=== PATIENT | female | born 1995 | race Caucasian/White ===

== ENCOUNTER 2016-05-20 02:49 | Inpatient (IN) | payer OTHER ==
[~2016-05-20] VITALS: Ht 170.2 cm; Wt 95.5 kg
[2016-05-20] VITALS (11 sets, daily range): BP systolic 112–139; BP diastolic 60–85
[~2016-05-20 02:49] MED LIST: IBUPROFEN800 MG PO; METHIMAZOLE10 MG PO; NOHOMEMEDS; PRENATAL TABLE1 EAC3 PO; SPRINTEC1 EACH PO; ZOFRAN ODT4 MG PO; ZOFRAN4 MG PO
[2016-05-20 04:44] LABS: EOSINOPHIL (%) 0.1 % (0-5); HEMATOCRIT 40.5 % (36.0-46.0); IMMATURE GRANULOCYTE (%) 0.3 % (0.0-0.7); INSTRUMENT ABS NEUTROPHIL CT 10.1 K/uL; LYMPHOCYTE COUNT 1.3 K/uL (1.0-2.8); MCH 29.2 PG (29.0-34.0); MCHC 33.8 G/DL (30.0-36.0); MCV 86.4 FL (83-99); MEAN PLAT.VOLUME 9.8 uM^3 (9.5-12.4); MONOCYTE (%) 3.9 % (3-12); MONOCYTE COUNT 0.5 K/uL (0-0.8); NEUTROPHIL (%) 84.8 % (45-76); NEUTROPHIL COUNT 10.1 K/uL (1.8-6.4); PLATELET COUNT 232 K/uL (156-360); RBC DIS.WIDTH-CV 14.1 % (11.8-14.6); RBC DIS.WIDTH-SD 43.8 % (39-53); RED BLOOD COUNT 4.69 M/uL (3.80-5.20); WHITE BLOOD COUNT 11.9 K/uL (4.1-10.2)
[2016-05-20] MEDS ORDERED: ZANTAC150 MG PO (04:47)
[2016-05-20] MEDS ORDERED: PROPYLTHIOURACI50 MG PO (04:48)
[2016-05-21 07:30] VITALS: BP 117/65
[2016-05-21] MEDS ORDERED: IBUPROFEN800 MG PO (11:47)
[2016-05-21] MEDS ORDERED: Tylenol Extra Streng PO (11:47)
[2016-05-21] MEDS ORDERED: PROPYLTHIOURACI50 MG PO (11:48)
[2016-05-21 15:20] VITALS: BP 123/82
== END 2016-05-21 16:54 | disposition home or self-care (01) | DRG 775 ==
LOC: LDRP-OP 02:49 → 2WEST 02:50
PROVIDERS: Advanced Practice Midwife
DX: O32.6XX0 Maternal care for compound presentation, not applicable or unspecified (principal); O69.81X0 Labor and delivery complicated by cord around neck, without compression, not applicable or unspecified; O99.344 Other mental disorders complicating childbirth; F33.9 Major depressive disorder, recurrent, unspecified; E05.00 Thyrotoxicosis with diffuse goiter without thyrotoxic crisis or storm; Z3A.40 40 weeks gestation of pregnancy; Z37.0 Single live birth; J45.909 Unspecified asthma, uncomplicated; K21.9 Gastro-esophageal reflux disease without esophagitis; O99.283 Endocrine, nutritional and metabolic diseases complicating pregnancy, third trimester; O99.513 Diseases of the respiratory system complicating pregnancy, third trimester; O99.613 Diseases of the digestive system complicating pregnancy, third trimester
CPT/HCPCS: 85025; J2590

== ENCOUNTER 2017-05-08 09:35 | Observation (INO) | payer OTHER ==
[~2017-05-08] VITALS: Ht 170.2 cm; Wt 68.4 kg
[~2017-05-08 09:35] MED LIST changes: +PROPYLTHIOURACI50 MG PO; +Tylenol Extra Streng PO; +ZANTAC150 MG PO
[2017-05-08 10:11] LABS: BASOPHIL (%) 0 % (0-1); EOSINOPHIL (%) 0 % (0-5); HEMATOCRIT 42.7 % (36.0-46.0); IMMATURE GRANULOCYTE (%) 0.3 % (0.0-0.7); LYMPHOCYTE (%) 6.4 % (15-42); LYMPHOCYTE COUNT 0.5 K/uL (1.0-2.8); MCH 27.8 PG (29.0-34.0); MCHC 35.1 G/DL (30.0-36.0); MCV 79.1 FL (83-99); MONOCYTE (%) 6.1 % (3-12); MONOCYTE COUNT 0.5 K/uL (0-0.8); NEUTROPHIL (%) 87.2 % (45-76); NEUTROPHIL COUNT 6.4 K/uL (1.8-6.4); PLATELET COUNT 183 K/uL (156-360); RBC DIS.WIDTH-CV 12.6 % (11.8-14.6); RBC DIS.WIDTH-SD 35.6 % (39-53); WHITE BLOOD COUNT 7.4 K/uL (4.1-10.2)
[2017-05-08 10:21] LABS: CHLORIDE 111 mEq/L (99-109); POTASSIUM 3.6 mEq/L (3.7-5.4); SODIUM 139 mEq/L (136-147)
[2017-05-08 10:22] LABS: APPEARANCE CLOUDY ((CLEAR)); BILIRUBIN NEGATIVE; BLOOD SMALL; COLOR YELLOW ((YELLOW)); GLUCOSE (STRIP) 50; KETONES NEGATIVE; LEUKOCYTES LARGE; NITRITE NEGATIVE; PROTEIN (STRIP) NEGATIVE; SPECIFIC GRAVITY 1.006 (1.000-1.030); UROBILINOGEN 0.2 MG/DL (0.2-1.0)
[2017-05-08 10:23] LABS: GLUCOSE 106 mg/dL (70-99); TOTAL PROTEIN 7.1 g/dL (6.4-8.3)
[2017-05-08 10:25] LABS: TOTAL BILIRUBIN 0.6 mg/dL (0.0-1.0)
[2017-05-08 10:27] LABS: ALKALINE PHOSPHATASE 99 IU/L (3-129); CREATININE 0.6 mg/dL (0.6-1.3); GFR ESTIMATE (CALCULATED) > 59 mL/min/
[2017-05-08 10:28] LABS: UREA NITROGEN (BUN) 9 mg/dL (9-23)
[2017-05-08 10:29] LABS: AST (GOT) 26 IU/L (2-34)
[2017-05-08 10:30] LABS: ALT (GPT) 49 IU/L (3-49); LIPASE 19 U/L (1.0-51.0)
[2017-05-08 10:36] LABS: QUANTITATIVE HCG < 4.0 MIU/ML
[2017-05-08 10:38] LABS: BACTERIA RARE /HPF; EPITHELIAL CELLS RARE /HPF; MUCUS NONE SEEN /LPF; RED BLOOD CELLS 0-5 /HPF (0-5)
[2017-05-08 10:39] LABS: OTHER TRICHOMONAS
[2017-05-08 11:38] LABS: THYROTROPIN (TSH) 0.05 MIU/L (0.4-5.5)
[2017-05-08] MEDS ORDERED: IMITREX50 MG PO (12:26)
[2017-05-08] MEDS ORDERED: PAIN RELIEF EX500 MG PO (12:26)
[2017-05-08] MEDS ORDERED: OMEPRAZOLE40 M1 PO (12:27)
[2017-05-08] MEDS ORDERED: TAPAZOLE5 MG PO (12:27)
[2017-05-08 16:22] VITALS: BP 114/65
[2017-05-08 19:13] VITALS: BP 131/71
[2017-05-08 23:32] VITALS: BP 114/76
[2017-05-09 03:47] VITALS: BP 114/71
[2017-05-09 08:44] VITALS: BP 112/65
[2017-05-09] MEDS ORDERED: INDERAL20 MG PO (09:59)
[2017-05-09] MEDS ORDERED: METHIMAZOLE5 MG PO (09:59)
== END 2017-05-09 13:30 | disposition home or self-care (01) ==
LOC: EME 09:35 → 5WEST 13:44 → EDOF 13:44 → ENRESERV 13:56 → 5WEST 15:30
PROVIDERS: Emergency Medicine
DX: E05.90 Thyrotoxicosis, unspecified without thyrotoxic crisis or storm (principal); Z91.19 Patient's noncompliance with other medical treatment and regimen; R00.0 Tachycardia, unspecified; R11.2 Nausea with vomiting, unspecified; R10.13 Epigastric pain; E87.6 Hypokalemia; K21.9 Gastro-esophageal reflux disease without esophagitis; G43.909 Migraine, unspecified, not intractable, without status migrainosus
CPT/HCPCS: 71045; 80053; 81003; 83690; 84439; 84443; 84445 90; 84481; 84702; 85025; 93005; 99281; 99285; G0378; J1800; J7030

== ENCOUNTER 2017-05-10 12:22 | Emergency (ER) | payer OTHER ==
[~2017-05-10] VITALS: Ht 170.2 cm; Wt 67.9 kg
[~2017-05-10 12:22] MED LIST changes: +IMITREX50 MG PO; +INDERAL20 MG PO; +METHIMAZOLE5 MG PO; +OMEPRAZOLE40 M1 PO; +PAIN RELIEF EX500 MG PO; +TAPAZOLE5 MG PO
[2017-05-10 13:53] LABS: HEMATOCRIT 44.6 % (36.0-46.0); HEMOGLOBIN 15.5 G/DL (11.9-15.5); MCH 27.9 PG (29.0-34.0); MCHC 34.8 G/DL (30.0-36.0); MCV 80.2 FL (83-99); PLATELET COUNT 236 K/uL (156-360); RBC DIS.WIDTH-CV 12.5 % (11.8-14.6); RBC DIS.WIDTH-SD 35.8 % (39-53); RED BLOOD COUNT 5.56 M/uL (3.80-5.20); WHITE BLOOD COUNT 4.8 K/uL (4.1-10.2)
[2017-05-10 14:01] LABS: CHLORIDE 108 mEq/L (99-109); SODIUM 141 mEq/L (136-147)
[2017-05-10 14:03] LABS: GLUCOSE 90 mg/dL (70-99)
[2017-05-10 14:06] LABS: POTASSIUM 4.7 mEq/L (3.7-5.4)
[2017-05-10 14:07] LABS: CREATININE 0.6 mg/dL (0.6-1.3); GFR ESTIMATE (CALCULATED) > 59 mL/min/
[2017-05-10 14:08] LABS: UREA NITROGEN (BUN) 8 mg/dL (9-23)
[2017-05-10 14:15] LABS: QUANTITATIVE HCG < 4.0 MIU/ML; TROP-I INTERPRETATION NEGATIVE; TROPONIN-I < 0.01 ng/mL (0.0-0.30)
[2017-05-10 15:50] VITALS: BP 115/79
== END 2017-05-10 15:55 | disposition home or self-care (01) ==
LOC: EME 12:22
PROVIDERS: Physician Assistant Medical
DX: R07.89 Other chest pain (principal); J45.909 Unspecified asthma, uncomplicated; E05.90 Thyrotoxicosis, unspecified without thyrotoxic crisis or storm
CPT/HCPCS: 71046; 80048; 84484; 84702; 85027; 93005; 99281; 99284

== ENCOUNTER 2017-07-07 18:49 | Observation (INO) | payer OTHER ==
[~2017-07-07] VITALS: Ht 170.2 cm; Wt 70.1 kg
[2017-07-07 19:42] LABS: HEMATOCRIT 37.5 % (36.0-46.0); HEMOGLOBIN 13.7 G/DL (11.9-15.5); MCH 29.7 PG (29.0-34.0); MCHC 36.5 G/DL (30.0-36.0); MCV 81.3 FL (83-99); PLATELET COUNT 188 K/uL (156-360); RBC DIS.WIDTH-CV 14.4 % (11.8-14.6); RBC DIS.WIDTH-SD 41.7 % (39-53); RED BLOOD COUNT 4.61 M/uL (3.80-5.20); WHITE BLOOD COUNT 5.6 K/uL (4.1-10.2)
[2017-07-07 20:00] LABS: CHLORIDE 108 mEq/L (99-109); POTASSIUM 3.5 mEq/L (3.7-5.4); SODIUM 140 mEq/L (136-147)
[2017-07-07 20:02] LABS: GLUCOSE 86 mg/dL (70-99)
[2017-07-07 20:05] LABS: CREATININE 0.5 mg/dL (0.6-1.3); GFR ESTIMATE (CALCULATED) > 59 mL/min/; TROP-I INTERPRETATION NEGATIVE; TROPONIN-I < 0.01 ng/mL (0.0-0.30)
[2017-07-07 20:06] LABS: UREA NITROGEN (BUN) 4 mg/dL (9-23)
[2017-07-07 20:42] LABS: QUANTITATIVE HCG 123866.8 MIU/ML
[2017-07-07 21:21] LABS: THYROTROPIN (TSH) < 0.02 MIU/L (0.4-5.5)
[2017-07-08] MEDS ORDERED: PROPYLTHIOURACI50 MG PO (01:48)
[2017-07-08] MEDS ORDERED: PRENATAL VITAM1 EAC6 PO (01:49)
[2017-07-08] MEDS ORDERED: INDERAL10 MG PO (01:49)
[2017-07-08 04:18] VITALS: BP 119/77
[2017-07-08 06:08] LABS: TROP-I INTERPRETATION NEGATIVE; TROPONIN-I < 0.01 ng/mL (0.0-0.30)
[2017-07-08 07:35] VITALS: BP 116/72
[2017-07-08 13:03] LABS: TROP-I INTERPRETATION NEGATIVE; TROPONIN-I < 0.01 ng/mL (0.0-0.30)
[2017-07-08 13:51] VITALS: BP 128/66
[2017-07-09] MEDS ORDERED: ZANTAC150 MG PO (19:37)
== END 2017-07-08 14:10 | disposition home or self-care (01) ==
LOC: EME 18:49 → EDOF 07-08 01:47 → ENRESERV 07-08 01:48 → 4SOUTH 07-08 04:13
PROVIDERS: Hospitalist; Physician Assistant Medical
DX: O99.281 Endocrine, nutritional and metabolic diseases complicating pregnancy, first trimester (principal); E05.00 Thyrotoxicosis with diffuse goiter without thyrotoxic crisis or storm; Z91.19 Patient's noncompliance with other medical treatment and regimen; Z3A.11 11 weeks gestation of pregnancy; O99.611 Diseases of the digestive system complicating pregnancy, first trimester; K21.9 Gastro-esophageal reflux disease without esophagitis; Z82.49 Family history of ischemic heart disease and other diseases of the circulatory system; Z83.3 Family history of diabetes mellitus
CPT/HCPCS: 71046; 71275; 80048; 84439; 84443; 84481; 84484; 84702; 85027; 85379; 93005; 99281; 99285; G0378; J7030

== ENCOUNTER 2017-07-09 16:51 | Emergency (ER) | payer OTHER ==
[~2017-07-09] VITALS: Ht 170.2 cm; Wt 69.9 kg
[~2017-07-09 16:51] MED LIST changes: +INDERAL10 MG PO; +PRENATAL VITAM1 EAC6 PO
[2017-07-09 17:42] LABS: HEMATOCRIT 38.8 % (36.0-46.0); HEMOGLOBIN 14.1 G/DL (11.9-15.5); MCH 29.7 PG (29.0-34.0); MCHC 36.3 G/DL (30.0-36.0); MCV 81.7 FL (83-99); PLATELET COUNT 202 K/uL (156-360); RBC DIS.WIDTH-CV 14.3 % (11.8-14.6); RBC DIS.WIDTH-SD 41.8 % (39-53); RED BLOOD COUNT 4.75 M/uL (3.80-5.20); WHITE BLOOD COUNT 7.3 K/uL (4.1-10.2)
[2017-07-09 17:51] LABS: ALBUMIN 3.9 g/dL (3.2-4.8); CHLORIDE 107 mEq/L (99-109); POTASSIUM 3.8 mEq/L (3.7-5.4); SODIUM 137 mEq/L (136-147)
[2017-07-09 17:53] LABS: GLUCOSE 88 mg/dL (70-99)
[2017-07-09 17:54] LABS: TOTAL PROTEIN 6.8 g/dL (6.4-8.3)
[2017-07-09 17:55] LABS: TOTAL BILIRUBIN 0.4 mg/dL (0.0-1.0)
[2017-07-09 17:57] LABS: ALKALINE PHOSPHATASE 72 IU/L (3-129); CREATININE 0.6 mg/dL (0.6-1.3); GFR ESTIMATE (CALCULATED) > 59 mL/min/
[2017-07-09 17:58] LABS: UREA NITROGEN (BUN) 5 mg/dL (9-23)
[2017-07-09 17:59] LABS: AST (GOT) 13 IU/L (2-34)
[2017-07-09 18:00] LABS: ALT (GPT) 13 IU/L (3-49)
[2017-07-09 18:01] LABS: LIPASE 12 U/L (1.0-51.0)
[2017-07-09 18:04] LABS: TROP-I INTERPRETATION NEGATIVE; TROPONIN-I < 0.01 ng/mL (0.0-0.30)
[2017-07-09] MEDS ORDERED: ZANTAC150 MG PO (19:37)
[2017-07-09 20:04] VITALS: BP 121/80
== END 2017-07-09 20:04 | disposition home or self-care (01) ==
LOC: EME 16:51
PROVIDERS: Physician Assistant Medical
DX: O26.891 Other specified pregnancy related conditions, first trimester (principal); R07.9 Chest pain, unspecified; O99.511 Diseases of the respiratory system complicating pregnancy, first trimester; J45.909 Unspecified asthma, uncomplicated; O99.281 Endocrine, nutritional and metabolic diseases complicating pregnancy, first trimester; E05.90 Thyrotoxicosis, unspecified without thyrotoxic crisis or storm; Z3A.11 11 weeks gestation of pregnancy
CPT/HCPCS: 80053; 83690; 84484; 85027; 93005; 99281; 99285